=== PATIENT | male | born 1965 | race Caucasian/White ===

== ENCOUNTER → 2016-05-15 | Outpatient (CLI) | payer MEDICAID | LOC: RAD 14:13 | PROVIDERS: ATTEND Physician Assistant | DX: M25.561 Pain in right knee (principal); R05 Cough; M17.11 Unilateral primary osteoarthritis, right knee | CPT/HCPCS: 71020 ==

== ENCOUNTER 2016-09-22 11:43 | Emergency (ER) | payer OTHER, MEDICAID ==
[2016-09-22] MEDS ORDERED: LIDOCAINE 1% INJ-PF (10 MG/ML) 30 ML SDV INJ ONE (11:48)
[2016-09-22] MEDS ORDERED: CEFAZOLIN 1 GM/D5W RTU 50 ML IV ONE (11:48)
[2016-09-22] MEDS ORDERED: DIPH/PERTUSS(ACELL)/TETANUS VAC/PF 0.5 ML SYR (>=10YO) IM ONE (11:48)
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
[2016-09-22] MEDS ORDERED: HYDROCODONE/ACETAMINOPHEN 5-325 MG TABLET PO ONE (12:49)
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
[2016-09-22 14:16] VITALS: BP 140/94
== END 2016-09-22 14:15 | disposition home or self-care (01) ==
LOC: ER 11:43
PROC: 0HQEXZZ Repair Left Lower Arm Skin, External Approach (ICD-10-PCS; principal; 2016-09-22)
DX: S51.012A Laceration without foreign body of left elbow, initial encounter (principal); M25.522 Pain in left elbow; V89.2XXA Person injured in unspecified motor-vehicle accident, traffic, initial encounter; F17.200 Nicotine dependence, unspecified, uncomplicated
CPT/HCPCS: 99283; 90471; 96365; 73080; 90715; 12004; J0690; J3490

== ENCOUNTER 2016-09-23 20:57 | Emergency (ER) | payer OTHER, MEDICAID ==
[2016-09-24] MEDS ORDERED: ONDANSETRON ODT 4 MG TAB (6 TAB/DSPK) PO PRN (00:16)
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
[2016-09-24 02:18] VITALS: BP 136/91
== END 2016-09-24 00:55 | disposition home or self-care (01) ==
LOC: ER 20:57
DX: M54.2 Cervicalgia (principal); R11.0 Nausea; R53.83 Other fatigue; R10.9 Unspecified abdominal pain; F17.200 Nicotine dependence, unspecified, uncomplicated
CPT/HCPCS: 99283

== ENCOUNTER 2016-09-28 13:20 | Emergency (ER) | payer OTHER, MEDICAID ==
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
[2016-09-28 18:04] VITALS: BP 131/85
== END 2016-09-28 18:04 | disposition home or self-care (01) ==
LOC: ER 13:20
DX: S51.812D Laceration without foreign body of left forearm, subsequent encounter (principal); V49.9XXD Car occupant (driver) (passenger) injured in unspecified traffic accident, subsequent encounter; F17.210 Nicotine dependence, cigarettes, uncomplicated
CPT/HCPCS: 87070; 87075; 87205; 99283

== ENCOUNTER → 2016-12-17 | Outpatient (CLI) | payer MEDICAID, OTHER ==
[2016-12-17 14:29] LABS: CHLAM PCR NOT DETECTED (NOT DETECT)
== END ==
LOC: LAB 12:46
PROVIDERS: ATTEND Emergency Medicine
DX: N34.0 Urethral abscess (principal); R30.0 Dysuria
CPT/HCPCS: 87086; 87491; 87591

== ENCOUNTER → 2017-07-31 | Outpatient (CLI) | payer MEDICAID ==
--- NOTE | 2017-07-31 15:09 | RADIOLOGY REPORT (SQ) ---
EXAM DESCRIPTION: CHEST PA/LATERAL COMPLETED DATE/TIME: 07/31/2017 2:06 pm REASON FOR STUDY: COUGH COMPARISON: 05/15/2016 EXAM PARAMETERS: NUMBER OF VIEWS: two views TECHNIQUE: Digital Frontal and Lateral radiographic views of the chest acquired. RADIATION DOSE: NA LIMITATIONS: none FINDINGS: LUNGS AND PLEURA: No opacities, masses or pneumothorax. No pleural effusion. MEDIASTINUM AND HILAR STRUCTURES: No masses or contour abnormalities. HEART AND VASCULAR STRUCTURES: Heart normal size. No evidence for failure. BONES: No acute findings. HARDWARE: None in the chest. OTHER: No other significant finding. IMPRESSION: NO SIGNIFICANT RADIOGRAPHIC FINDING IN THE CHEST. TECHNICAL DOCUMENTATION: JOB ID: [id number] [employer]- All Rights Reserved Reading location - IP/workstation name: [email or web address]
== END ==
LOC: OD 13:56
PROVIDERS: ATTEND Nurse Practitioner Family
DX: R05 Cough (principal)
CPT/HCPCS: 71046